=== PATIENT | male | born 1955 | race Asian ===

== ENCOUNTER 2018-07-03 09:04 | Inpatient (IN) | payer OTHER ==
[~2018-07-03] VITALS: Ht 180.3 cm; Wt 59.9 kg
[~2018-07-03 09:04] MED LIST: ALBUAER3 IN; AMLO5TAB13 PO; ASPI-231 PO; ATOR10TA52 PO; LISI10TA6 PO
[2018-07-03 10:17] LABS: Basophils # (auto) 0 uL; Hemoglobin 12.8 g/dL (13.5-17.5); Mean Corpuscular Hemoglobin 24.1 pg (28.0-32.0); Nucleated Red Blood Cells % 0.1 %
[2018-07-03 10:18] LABS: Basophils % (auto) 0.4 % (0.0-2.0); Eosinophils # (auto) 0.7 uL; Eosinophils % (auto) 6.9 % (0.0-7.0); Hematocrit 40.4 % (41.0-53.0); Lymphocytes # (auto) 1.2 uL; Lymphocytes % (auto) 12.3 % (10.0-50.0); Mean Corpuscular Hgb Conc. 31.7 g/dL (32.0-36.0); Mean Corpuscular Volume 76.1 fL (80.0-100.0); Monocytes # (auto) 0.6 uL; Monocytes % (auto) 6.3 % (0.0-12.0); Neutrophils # (auto) 7.1 uL; Neutrophils % (auto) 74.1 % (37.0-80.0); Platelet Count (auto) 283 10^3/uL (140-450); Red Blood Cells 5.31 10^6/uL (4.5-5.90); Red Cell Distribution Width 13.9 % (11.8-14.3); White Blood Cell 9.5 10^3/uL (4.4-10.8)
[2018-07-03 10:30] LABS: Albumin 3.5 g/dL (3.4-5.0); BUN/Creatinine Ratio 9.1; Potassium 4.3 mmol/L (3.5-5.1)
[2018-07-03 10:33] LABS: Bilirubin, Total 0.4 mg/dL (0.2-1.0); Total Protein 8.1 g/dL (6.4-8.2)
[2018-07-03] MEDS ORDERED: cefTRIAXone 1GM/50ML D5W 50 ML IV ONE (10:45)
[2018-07-03] MEDS ORDERED: methylPREDNISolone SOD SUCC 125 MG/2 ML VL ONE (16:17)
[2018-07-03] MEDS ORDERED: methylPREDNISolone SOD SUCC 125 MG/2 ML VL IV ONE (16:30)
[2018-07-03] MEDS ORDERED: ALBUTEROL SULF 2.5 MG/0.5ML(0.5%) NEB SOLN NEB PRN (16:45)
[2018-07-03] MEDS ORDERED: PROMETHAZINE HCL 25 MG/ML 1ML IV PRN (16:45)
[2018-07-03] MEDS ORDERED: LORazepam 0.5 MG TAB PO PRN (16:45)
[2018-07-03] MEDS ORDERED: NITROGLYCERIN 0.4 MG SL TAB SL PRN (16:45)
[2018-07-03] MEDS ORDERED: LACTULOSE 20Gm/30ML SOLN PO PRN ×2 (16:45)
[2018-07-03] MEDS ORDERED: TEMAZEPAM 15 MG CAP PO PRN (16:45)
[2018-07-03] MEDS ORDERED: MORPHINE SULFATE 4 MG/ML SYR/VIAL IV PRN ×2 (16:45)
[2018-07-03] MEDS: SODIUM CHLORIDE 0.9% 1,000 ML IV SCH (16:59)
[2018-07-03] MEDS ORDERED: OSELTAMIVIR 75 MG CAP PO ONE (17:00)
[2018-07-03] MEDS: DOXYCYCLINE 100MG/250ML 250 ML IV SCH ×2 (17:00→17:30)
[2018-07-03] MEDS ORDERED: OSELTAMIVIR 30 MG CAP PO ONE (17:00)
[2018-07-03] MEDS: methylPREDNISolone SOD SUCC 40 MG/ML VL IV SCH ×2 (17:29→23:11)
[2018-07-03] MEDS: IPRATROPIUM BROM 0.5 MG/2.5ML INH SOL NEB SCH (18:44)
[2018-07-03] MEDS: ALBUTEROL SULF 2.5 MG/0.5ML(0.5%) NEB SOLN NEB SCH (18:44)
[2018-07-03] MEDS: MORPHINE SULFATE 4 MG/ML SYR/VIAL IV PRN (19:07)
--- NOTE | 2018-07-03 20:00 | NUR ---
Telemetry admit from ER MURIELYADIRA admitted to Telemetry. Patient oriented to DEXTER ESCOBAR, primary RN, room 274, bed A, and unit policies regarding patient care and visiting hours. Patient now on continuous telemetry monitoring, tele box #[id number]. Patient placed on bedside oxygen, weighed by bedscale and encouraged to call if they need something. Pt currently sitting in bed with the rails up x2 and the bes locked in the lowest position. All questions and concerns addressed, patient verbalized understanding.
[2018-07-03 20:02] LABS: Hematocrit 40.1 % (41.0-53.0); Hemoglobin 12.8 g/dL (13.5-17.5)
[2018-07-03 20:17] LABS: CRP High Sensitivity 1.31 mg/dL (< 0.3)
[2018-07-03 20:30] VITALS: BP 115/72
[2018-07-03 22:00] VITALS: BP 115/72
[2018-07-04 01:09] VITALS: BP 115/72
[2018-07-04] MEDS: IPRATROPIUM BROM 0.5 MG/2.5ML INH SOL NEB SCH ×4 (01:10→18:37)
[2018-07-04] MEDS: ALBUTEROL SULF 2.5 MG/0.5ML(0.5%) NEB SOLN NEB SCH ×4 (01:10→18:37)
[2018-07-04 01:30] LABS: Hematocrit 36.8 % (41.0-53.0); Hemoglobin 11.9 g/dL (13.5-17.5)
[2018-07-04 05:00] VITALS: BP 91/63
[2018-07-04 05:38] LABS: Hematocrit 36.2 % (41.0-53.0); Hemoglobin 11.5 g/dL (13.5-17.5)
[2018-07-04 05:50] LABS: Anion Gap 10 (5-15); Blood Urea Nitrogen 25 mg/dL (7-18); Calcium 8.1 mg/dL (8.5-10.1); Carbon Dioxide 22 mmol/L (21-32); Chloride 109 mmol/L (98-107); Glucose 140 mg/dL (74-106); Potassium 4.3 mmol/L (3.5-5.1); Sodium 141 mmol/L (136-145)
[2018-07-04] MEDS: methylPREDNISolone SOD SUCC 40 MG/ML VL IV SCH ×3 (05:51→18:25)
[2018-07-04] MEDS: SODIUM CHLORIDE 0.9% 1,000 ML IV SCH (05:52)
[2018-07-04 05:58] LABS: Alanine Aminotransferase 133 U/L (16-61); Albumin 2.8 g/dL (3.4-5.0); Aspartate Aminotransferase 28 U/L (15-37); GFR African American 75 mL/min; GFR Non-African American 62 mL/min
[2018-07-04 06:09] LABS: Alkaline Phosphatase 137 U/L (45-117)
[2018-07-04 06:10] LABS: Bilirubin, Total 0.3 mg/dL (0.2-1.0); Total Protein 6.9 g/dL (6.4-8.2)
--- NOTE | 2018-07-04 07:00 | NUR ---
Opening Shift Note Assumed care of patient, RESTING IN BED EVEN AND UNLABORED BREATHING. No S/S of distress/SOB or pain. WILL Insruct on POC and will continue to monitor for changes Q1hr and PRN.
--- NOTE | 2018-07-04 09:02 | NUR ---
ECHO IN PROCESS
[2018-07-04] MEDS: ENOXAPARIN SOD 40 MG/0.4 ML SYRINGE SC SCH (09:59)
[2018-07-04] MEDS: PANTOPRAZOLE 40 MG TAB PO SCH (09:59)
[2018-07-04] MEDS ORDERED: OSELTAMIVIR 30 MG CAP PO SCH (10:00)
[2018-07-04 11:56] LABS: Hepatitis B Surface Antibody Negative
[2018-07-04 12:30] LABS: Hepatitis A Total Antibody Positive
[2018-07-04 13:41] LABS: Hepatitis B Surface Antigen Negative (Negative); Hepatitis C Antibody Negative (Negative)
[2018-07-04 13:45] LABS: Hepatitis B Core Total AB Positive
[2018-07-04] MEDS ORDERED: IOHEXOL 350 MG/ML 100ML IJ ONE ×2 (14:35→14:52)
[2018-07-04] MEDS: DOXYCYCLINE 100MG/250ML 250 ML IV SCH (16:45)
[2018-07-04 21:30] VITALS: BP 94/58
[2018-07-05] MEDS: IPRATROPIUM BROM 0.5 MG/2.5ML INH SOL NEB SCH ×3 (00:10→11:44)
[2018-07-05] MEDS: ALBUTEROL SULF 2.5 MG/0.5ML(0.5%) NEB SOLN NEB SCH ×3 (00:10→11:44)
[2018-07-05] MEDS: SODIUM CHLORIDE 0.9% 1,000 ML IV SCH ×2 (00:34→09:07)
[2018-07-05] MEDS: methylPREDNISolone SOD SUCC 40 MG/ML VL IV SCH ×3 (00:34→11:29)
[2018-07-05] MEDS: MORPHINE SULFATE 4 MG/ML SYR/VIAL IV PRN (00:35)
[2018-07-05 05:00] VITALS: BP 100/66
[2018-07-05] MEDS: DOXYCYCLINE 100MG/250ML 250 ML IV SCH (05:12)
--- NOTE | 2018-07-05 07:18 | NUR ---
Opening Shift Note Assumed care of patient, awake and alert. No S/S of distress/SOB or pain. Instructed on POC and to call for assist PRN, will continue to monitor for changes Q1hr and PRN.
[2018-07-05] MEDS: ENOXAPARIN SOD 40 MG/0.4 ML SYRINGE SC SCH (08:55)
[2018-07-05] MEDS: PANTOPRAZOLE 40 MG TAB PO SCH (08:55)
[2018-07-05 09:00] VITALS: BP 111/71
[2018-07-05 13:00] VITALS: BP 104/69
== END 2018-07-05 13:39 | disposition home or self-care (01) | DRG 140 ==
LOC: ER 09:06 → TELE 17:33 → TELE-WESTW 20:00
PROVIDERS: ADMIT Internal Medicine; ATTEND Internal Medicine
DX: J44.1 Chronic obstructive pulmonary disease with (acute) exacerbation (principal); J45.901 Unspecified asthma with (acute) exacerbation; D64.9 Anemia, unspecified; E78.5 Hyperlipidemia, unspecified; I10 Essential (primary) hypertension; Z82.49 Family history of ischemic heart disease and other diseases of the circulatory system; Z87.891 Personal history of nicotine dependence; Z79.82 Long term (current) use of aspirin; Z79.899 Other long term (current) drug therapy
CPT/HCPCS: 36415; 71046; 71275; 76705; 80053; 82378; 82550; 83605; 84484; 85014; 85018; 85025; 85045; 85379; 85652; 86141; 86704; 86706; 86708; 86803; 87040; 87340; 87804; 93005; 93306; 94640; 96365; 96375; G0378; G9035; J0696; J3490

== ENCOUNTER 2018-08-14 20:27 | Inpatient (IN) | payer OTHER ==
[~2018-08-14] VITALS: Ht 180.3 cm; Wt 59.0 kg
[~2018-08-14 20:27] MED LIST changes: -ATOR10TA52 PO
[2018-08-14] MEDS ORDERED: IPRATROPIUM BROM 0.5 MG/2.5ML INH SOL NEB ONE (20:45)
[2018-08-14] MEDS ORDERED: ALBUTEROL SULF 2.5 MG/0.5ML(0.5%) NEB SOLN NEB ONE (20:45)
[2018-08-14] MEDS ORDERED: methylPREDNISolone SOD SUCC 125 MG/2 ML VL IV ONE (21:00)
[2018-08-14] MEDS ORDERED: HYDROcodone-ACET 10/325MG TAB PO ONE (21:30)
[2018-08-14 21:44] LABS: Basophils # (auto) 0 uL; Basophils % (auto) 0.6 % (0.0-2.0); Hemoglobin 11.7 g/dL (13.5-17.5); Mean Corpuscular Hgb Conc. 31.3 g/dL (32.0-36.0); Mean Corpuscular Volume 75.8 fL (80.0-100.0); White Blood Cell 7.1 10^3/uL (4.4-10.8)
[2018-08-14 21:46] LABS: Eosinophils # (auto) 0.5 uL; Eosinophils % (auto) 6.6 % (0.0-7.0); Hematocrit 37.3 % (41.0-53.0); Lymphocytes # (auto) 1.7 uL; Lymphocytes % (auto) 24.2 % (10.0-50.0); Mean Corpuscular Hemoglobin 23.8 pg (28.0-32.0); Monocytes # (auto) 0.9 uL; Monocytes % (auto) 12.1 % (0.0-12.0); Neutrophils % (auto) 56.5 % (37.0-80.0); Platelet Count (auto) 218 10^3/uL (140-450); Red Blood Cells 4.92 10^6/uL (4.5-5.90); Red Cell Distribution Width 15.9 % (11.8-14.3)
[2018-08-14 22:09] LABS: Chloride 107 mmol/L (98-107); Potassium 4.2 mmol/L (3.5-5.1); Sodium 143 mmol/L (136-145)
[2018-08-14 22:11] LABS: Albumin 3.2 g/dL (3.4-5.0); Anion Gap 6 (5-15); Blood Urea Nitrogen 14 mg/dL (7-18); Calcium 8.5 mg/dL (8.5-10.1); Carbon Dioxide 30 mmol/L (21-32); Glucose 112 mg/dL (74-106); Magnesium 2.4 mg/dL (1.6-2.6)
[2018-08-14 22:14] LABS: Alanine Aminotransferase 27 U/L (16-61); Aspartate Aminotransferase 26 U/L (15-37); BUN/Creatinine Ratio 13.1; GFR African American 90 mL/min; GFR Non-African American 74 mL/min
[2018-08-14 22:17] LABS: Alkaline Phosphatase 68 U/L (45-117); Bilirubin, Total 0.1 mg/dL (0.2-1.0); Total Protein 7.7 g/dL (6.4-8.2)
[2018-08-14] MEDS ORDERED: ALBUTEROL SULF 2.5 MG/0.5ML(0.5%) NEB SOLN NEB PRN (23:15)
[2018-08-14] MEDS ORDERED: NITROGLYCERIN 0.4 MG SL TAB SL PRN (23:15)
[2018-08-14] MEDS ORDERED: ACETAMINOPHEN 325 MG TAB PO PRN (23:15)
[2018-08-14] MEDS ORDERED: IPRATROPIUM BROM 0.5 MG/2.5ML INH SOL NEB PRN (23:15)
[2018-08-14] MEDS ORDERED: MORPHINE SULF INJ 2 MG/ML SYRINGE 1ML IV PRN (23:15)
[2018-08-14] MEDS ORDERED: HYDROcodone-ACET 5/325MG TAB PO PRN (23:15)
[2018-08-14] MEDS ORDERED: ONDANSETRON HCL 4 MG/2 ML VIAL IV PRN (23:15)
[2018-08-14] MEDS ORDERED: TEMAZEPAM 15 MG CAP PO PRN (23:15)
[2018-08-15] VITALS (8 sets, daily range): BP systolic 106–115; BP diastolic 63–84
--- NOTE | 2018-08-15 00:50 | NUR ---
RECEIVED PATIENT FROM ED VIA STRETCHER, ACCOMPANIED BY DAUGHTER, AWAKE, ALERT, ORIENTED X4, AMBULATORY, SPEAKS CLEARLY. NO S/S OF RESPIRATORY DISTRESS, DENIES SOB AND CHEST PAIN, ON O2 AT 2 LPM VIA NC SATURATING AT 99%. WITH IV ON THE RIGHT AC G20 SL. SKIN IS INTACT. ORIENTED ON PLAN OF CARE. BED IS LOCKED AND IN LOWEST LEVEL, SIDE RAILS UP X2, CALL LIGHT WITHIN REACH. WILL CONTINUE TO MONITOR.
--- NOTE | 2018-08-15 01:09 | NUR ---
Respiratory note: CHECKED ON PT AT THIS TIME AFTER BEING TRANSPORTED TO 250A FROM ER, PT ON 1LNC PULSE OX 98%, RR 20, NO DISTRESS NOTED. NO BIPAP NEEDED AT THIS TIME.
--- NOTE | 2018-08-15 06:16 | NUR ---
MOVED TO ROOM 223A, CARE ENDORSED TO SANIA RYDER
--- NOTE | 2018-08-15 07:07 | NUR ---
CLOSING NOTE PATIENT IN NO DISTRESS. CARE TRANSFERRED TO DAY SHIFT SANIA MERIDA
--- NOTE | 2018-08-15 07:30 | NUR ---
Morning note patient resting in bed with even and unlabored respirations, no distress noted. Instructed patient on POC, fall precautions and to call for assistance as needed. patient verbalized understanding. Fall precautions in place with call light within reach, bed in low locked position with x2 side rails up. Will continue to monitor q1hr & PRN.
[2018-08-15 08:20] LABS: Basophils # (auto) 0 uL; Basophils % (auto) 0.1 % (0.0-2.0); Eosinophils # (auto) 0 uL; Hemoglobin 11.3 g/dL (13.5-17.5); Lymphocytes # (auto) 0.5 uL
[2018-08-15 08:21] LABS: Eosinophils % (auto) 0.1 % (0.0-7.0); Hematocrit 35.7 % (41.0-53.0); Lymphocytes % (auto) 14.7 % (10.0-50.0); Mean Corpuscular Hemoglobin 23.9 pg (28.0-32.0); Mean Corpuscular Hgb Conc. 31.7 g/dL (32.0-36.0); Mean Corpuscular Volume 75.4 fL (80.0-100.0); Monocytes # (auto) 0 uL; Monocytes % (auto) 1.2 % (0.0-12.0); Neutrophils % (auto) 83.9 % (37.0-80.0); Platelet Count (auto) 216 10^3/uL (140-450); Red Blood Cells 4.73 10^6/uL (4.5-5.90); Red Cell Distribution Width 16.1 % (11.8-14.3); White Blood Cell 3.5 10^3/uL (4.4-10.8)
[2018-08-15 08:34] LABS: Potassium 5.1 mmol/L (3.5-5.1)
[2018-08-15 08:37] LABS: Calcium 8.9 mg/dL (8.5-10.1)
[2018-08-15 08:40] LABS: BUN/Creatinine Ratio 15.9
--- NOTE | 2018-08-15 09:30 | NUR ---
Respiratory note: ROUTINE PRN [place] CHECK. HR 80, RR 16, POX 100% ON 1L/M NC, BREATH SOUNDS ARE CLEAR. NO SOB OR DISTRESS NOTED. PT WAS NOTIFY TO HAVE RT PAGE FOR [place] TX.
[2018-08-15] MEDS: FAMOTIDINE 20 MG TAB PO SCH ×2 (10:39→21:45)
[2018-08-15] MEDS: LISINOPRIL 10 MG TAB PO SCH (10:39)
[2018-08-15] MEDS: amLODIPine BESYLATE 5 MG TAB PO SCH (10:40)
--- NOTE | 2018-08-15 10:44 | NUR ---
Patient refused Lisinopril Patient stated "my doctor told me not to take it any more." Medication returned to the medication pyxis.
--- NOTE | 2018-08-15 10:45 | NUR ---
Family at bedside
--- NOTE | 2018-08-15 18:58 | NUR ---
End of shift patient resting in bed with even and unlabored respirations, no distress noted. Fall precautions in place with bed in low position, x2 side rails up and call light within reach. Patient's personal straight cane at bedside.
--- NOTE | 2018-08-15 19:30 | NUR ---
Opening Shift Note Assumed care of patient, awake and alert, can speak a little Czech. No S/S of distress/SOB or pain. Instructed on POC and to call for assist PRN, patient verbalized understanding, call light within reach, will continue to monitor for changes Q1hr and PRN.
[2018-08-15] MEDS: IPRATROPIUM BROM 0.5 MG/2.5ML INH SOL NEB SCH (19:39)
[2018-08-15] MEDS: ALBUTEROL SULF 2.5 MG/0.5ML(0.5%) NEB SOLN NEB SCH (19:39)
[2018-08-16] MEDS: IPRATROPIUM BROM 0.5 MG/2.5ML INH SOL NEB SCH ×2 (00:57→06:16)
[2018-08-16] MEDS: ALBUTEROL SULF 2.5 MG/0.5ML(0.5%) NEB SOLN NEB SCH ×2 (00:57→06:16)
[2018-08-16 05:00] VITALS: BP 110/69
[2018-08-16] MEDS: LISINOPRIL 10 MG TAB PO SCH (08:38)
[2018-08-16] MEDS: FAMOTIDINE 20 MG TAB PO SCH (08:38)
[2018-08-16] MEDS: amLODIPine BESYLATE 5 MG TAB PO SCH (08:39)
--- NOTE | 2018-08-16 09:55 | NUR ---
was at bedside - Dr. Green.
[2018-08-16 10:25] VITALS: BP 112/69
[2018-08-16] MEDS ORDERED: PANT40TA2 PO (10:25)
[2018-08-16] MEDS ORDERED: PRE1T PO (10:25)
[2018-08-16] MEDS ORDERED: ONDANSETRON ODT 4 MG TAB PO PRN (10:45)
[2018-08-16] MEDS ORDERED: LACTULOSE 20Gm/30ML SOLN PO PRN (10:45)
--- NOTE | 2018-08-16 11:05 | NUR ---
Discharge Discharge education and paperwork given to the patient and patient's daughter at bedside, Mihai. Mihai translated discharge education and instructions to the patient. Patient verbalized understanding. IV removed with clean technique, catheter intact, dressing applied. Patient instructed to collect all personal belongings. Patient verbalized understanding. This RN notified eddie Richards, to transport patient to private vehicle via wheelchair. Susie verbalized understanding. Patient to be transported home by Mihai. No distress noted at this time.
--- NOTE | 2018-08-16 11:25 | NUR ---
Patient taken to private vehicle via wheelchair by staff member. No distress noted.
[2018-08-16] MEDS ORDERED: ONDANSETRON HCL 4 MG/2 ML VIAL IV PRN (11:30)
[2018-08-16] MEDS ORDERED: LACTULOSE 20Gm/30ML SOLN PO ONE (11:30)
== END 2018-08-16 11:25 | disposition home or self-care (01) | DRG 140 ==
LOC: ER 20:33 → TELE 23:23 → TELE-EAST 23:57 → TELE-CENTR 08-15 05:51 → CENTRAL 08-15 13:38
PROVIDERS: ADMIT Nurse Practitioner; ATTEND Internal Medicine
PROC: 5A09357 Assistance with Respiratory Ventilation, Less than 24 Consecutive Hours, Continuous Positive Airway Pressure (ICD-10-PCS; principal; 2018-08-14)
DX: J44.1 Chronic obstructive pulmonary disease with (acute) exacerbation (principal); J96.00 Acute respiratory failure, unspecified whether with hypoxia or hypercapnia; J45.901 Unspecified asthma with (acute) exacerbation; E78.5 Hyperlipidemia, unspecified; D50.9 Iron deficiency anemia, unspecified; I10 Essential (primary) hypertension; Z82.49 Family history of ischemic heart disease and other diseases of the circulatory system; Z87.891 Personal history of nicotine dependence
CPT/HCPCS: 36415; 36600; 71045; 80048; 80053; 82805; 83735; 83880; 84484; 85025; 94640; 94660; 96374; G0378